=== PATIENT | female | born 1990 | race Two or more races ===

== ENCOUNTER 2017-09-07 07:54 | Inpatient (IN) | payer OTHER ==
[2017-09-07] MEDS ORDERED: Oxytocin 20 units in LR 2,000 ML IV ONE (08:10)
[2017-09-07] MEDS ORDERED: Lidocaine 2% Inj (20ml) ONE (08:10)
[2017-09-07] MEDS ORDERED: Penicillin G 5 Million Unit Vial IVPB ONE ×2 (08:11→08:49)
[2017-09-07 08:33] VITALS: BMI 25.0
--- NOTE | 2017-09-07 08:39 | OBADHP ---
Datetime: 09/07/2017 08:37 Admit Comment, IP Provider: 18 yo [id number] edc 09/24 37.4wks is a pt of dr modi. she presents w/ c/o ctxs since 23:00 with increased intensity andfreq since 4am. +srom upon eval in [facility]. denies decre ased fm or problems w/ preg. gbs unknown. declines epidural pt w/ urge to push pmhx_ pshx: denies shx: denies etoh, illicit drug/tobacco use nkda medic: pnv i: 37.4wks labor p: admit pt advised that cervix is not completely dilated and that she is not ready to push. IP Chief Complaint: Uterine contractions EGA AdmitDate IP: 37.4 IP Admit Plan: Admit to unit Datetime: 09/07/2017 08:31 Pelvic Type - PN: Adequate Extremities - PN: Normal Abdomen - PN: Normal Back - PN: Normal Lungs - PN: Normal Heart - PN: Normal Neurologic - PN: Normal HEENT - PN: Normal General - PN: Normal Presentation-Admit: Vertex FHR - Baseline A Provider: 120 Amniotic Fluid Color, Provider: Clear Membranes, Provider: Ruptured Contraction Comments Provider: q2min NICHD Variability Prov Fetus A: Moderate 6-25bpm NICHD Accel Fetus A IP Provider: [id number] FHR Category Provider Fetus A: Category I NICHD Decel Fetus A IP Provider: None Dilatation, Provider: 9 Effacement, Provider: 90 Station, Provider: -1
[2017-09-07] MEDS ORDERED: Lactated Ringer's 1,000 ML IV SCH (09:00)
[2017-09-07 09:25] LABS: EOS # 0.1 K/uL (0.0-0.7); EOS % 0.5 % (0.0-4.0); NRBC % 0.1 % (0.0-2.0); WHITE BLOOD COUNT 14.3 K/uL (4.8-10.8)
[2017-09-07 09:35] LABS: BASO % 0.2 % (0.0-2.0); HEMOGLOBIN 10.9 g/dL (11.0-16.0); LYMPH # 3.6 K/uL (1.0-4.3); LYMPH % 24.9 % (20.0-40.0); MEAN CORPUSCULAR HEMOGLOBIN 26.2 pg (27.0-31.0); MEAN CORPUSCULAR HGB CONC 31.6 g/dL (33.0-37.0); MEAN PLATELET VOLUME 11.8 fL (7.2-11.7); MONO % 6.7 % (0.0-10.0); NEUT # 9.7 K/uL (1.8-7.0); NEUT % 67.7 % (50.0-75.0); RBC 4.16 Mil/uL (3.80-5.20); RED CELL DISTRIBUTION WIDTH 16.7 % (11.5-14.5)
[2017-09-07 09:53] LABS: BLOOD UREA NITROGEN 7 mg/dL (7-17); CALCIUM 8.4 mg/dl (8.6-10.4); GFR AFRICAN-AMERICAN > 60; GFR NON-AFRICAN AMERICAN > 60
[2017-09-07 11:55] LABS: HEPATITIS B SURFACE AG NEGATIVE (NEGATIVE)
[2017-09-07] MEDS: Multiple Vitamins Tab PO SCH (13:49)
[2017-09-08 07:40] LABS: MEAN CELL VOLUME 81.8 fL (81.0-99.0); MEAN CORPUSCULAR HEMOGLOBIN 26.5 pg (27.0-31.0); MEAN CORPUSCULAR HGB CONC 32.4 g/dL (33.0-37.0); MEAN PLATELET VOLUME 12.3 fL (7.2-11.7); RBC 4.15 Mil/uL (3.80-5.20); RED CELL DISTRIBUTION WIDTH 16.7 % (11.5-14.5); WHITE BLOOD COUNT 13.5 K/uL (4.8-10.8)
[2017-09-08] MEDS: Multiple Vitamins Tab PO SCH (10:48)
--- NOTE | 2017-09-08 18:49 | OBDS ---
DELIVERY PERSONNEL Delivery Doctor: Mike Lomeli MD Heavy Equipment Sales Manager: ShearodríguezCatalina RN MATERNAL INFORMATION Delivery Anesthesia: Local Medications in Delivery: PITOCIN 20UNITS IN NS 1000ML. Estimated Blood Loss (ml): 250 Placenta Cultured: No Maternal Complications: None Provider Comments: Precipitous VD Delivery @ 37.4wks Findings: clear amniotic fluid; viable male, 3475g 8ad50hh; 9_9; 2nd degree perineal laceration Ob:real nelson Placenta delivery _ repair per Dr. Lomeli LABOR SUMMARY EDC: 09/24/2017 00:00 No. Babies in Womb: 1 Attempted: No Labor Anesthesia: None LABOR INFORMATION Reason for Induction: Not Applicable Onset of Labor: 09/06/2017 22:00 Complete Dilatation: 09/07/2017 08:00 Oxytocin: N/A Group B Beta Strep: Negative Antibiotics # of Doses: 1 Antibiotics Time of Last Dose: pen g. 5.0units ivpb. Steroids Given: None Reason Steroids Not Administered: Not Applicable MEMBRANES Membranes Rupture Method: Spontaneous Rupture of Membranes: 09/07/2017 07:50 Length of Rupture (hrs): 0.50 Amniotic Fluid Color: Clear Amniotic Fluid Amount: Moderate Amniotic Fluid Odor: Normal STAGES OF LABOR Stage 1 hrs: 10 Stage 1 min: 0 Stage 2 hrs: 0 Stage 2 min: 20 Stage 3 hrs: 0 Stage 3 min: 47 Total Time in Labor hrs: 11 Total Time in Labor min: 7 VAGINAL DELIVERY Episiotomy: Median Laceration Extension: Second Degree Laceration Type: Perineal Laceration Repair: Yes Initial Vag Sponge Count: 10 Final Vag Sponge Count: 10 Initial Vag Sharps Count: 2 Final Vag Sharps Count: 2 Sponge Count Correct: Yes Sharps Count Correct: Yes CSECTION DELIVERY Primary Indication: N/A Secondary Indication: N/A CSection Urgency: N/A CSection Incidence: N/A Labor: N/A Elective: N/A CSection Incision: N/A BABY A INFORMATION Delivery Date/Time: 09/07/2017 08:20 Method of Delivery: Vaginal Born in Route : No : N/A Forceps: N/A Vacuum Extraction: N/A Shoulder Dystocia : No SHOULDER DYSTOCIA BABY A Delivery Date/Time: 09/07/2017 08:20 PRESENTATION/POSITION BABY A Presentation: Cephalic Cephalic Presentation: Vertex Vertex Position: Right Occipital Anterior Breech Presentation: N/A PLACENTA INFORMATION BABY A Placenta Delivery Time : 09/07/2017 09:07 Placenta Method of Delivery: Spontaneous Placenta Status: Delivered SCORES BABY A Heart Rate 1 min: >100 bpm Resp Effort 1 min: Good Cry Reflex Irritability 1 min: Cough or Sneeze or Pulls Away Muscle Tone 1 min: Active Motion Color 1 min: Body [place], Extremities Blue SCORE 1 MIN: 9 Heart Rate 5 min: >100 bpm Resp Effort 5 min: Good Cry Reflex Irritability 5 min: Cough or Sneeze or Pulls Away Muscle Tone 5 min: Active Motion Color 5 min: Body [place], Extremities Blue SCORE 5 MIN: 9 INFANT INFORMATION BABY A Gestational Age at Delivery: 37.0 Gestational Status: Term Infant Outcome : Liveborn Infant Condition : Stable Infant Sex: Male IDENTIFICATION/MEDS BABY A ID Band Number: [id number] ID Band Location: Left Leg; Left Arm Sensor Applied: Yes Sensor Number: [id number] Sensor Location : Cord Clamp Vitamin K Given : Aquamephyton 1 mg IM Erythromycin Given: Given Both Eyes WEIGHT/LENGTH BABY A Birthweight (gms): 3475 Infant Weight (lb): 7 Infant Weight (oz): 11 Infant Length Inches: 19.75 Length cms: 50.2 CORD INFORMATION BABY A No. Cord Vessels: 3 Nuchal Cord : N/A True Knot: 0 Cord Blood Taken: No Infant Suction: Mouth; Nose ASSESSMENT BABY A Complications: None Physical Findings at Delivery: Within Normal Limits Respirations: Appears Normal [place]/ALS Called : No Infant Care By: ZEKE PEREZ Transferred To: [facility]
--- NOTE | 2017-09-08 18:54 | OBPPN ---
Datetime: 09/08/2017 18:50 PP Pain Prov: Within normal limits PP Breasts Prov: Normal PP Heart Prov: Normal PP Lungs Prov: Normal PP Abdomen/Uterus Prov: Normal PP Lochia Prov: Normal PP Vulva/Perineum Prov: Normal PP CVA Tenderness Prov: Normal PP Extremities Prov: Normal PP C/S Incision Prov: Normal PP Impression Prov: Normal progression PP Progress Note Prov: PPD #1 No C/O VS Stable Abdomen Soft Perineum Intact P: Home in AM if stable
--- NOTE | 2017-09-08 18:54 | OBDCSUM ---
Datetime: 09/08/2017 18:53 Discharged to, Provider: Home Follow up at, Provider: Dr. Armani Drake Instr Activity: Normal activity Disch Instr Diet: Regular Discharge Instructions, Provider: Routine instructions given Discharge Diagnosis, Provider: Delivery Follow up in weeks, Provider: Ariadna Drake Referrals: None Contraception discussed, Prov: Yes Datetime: 09/08/2017 18:52 Discharge Instructions, Provider: Routine instructions given Discharge Diagnosis, Provider: Delivery
--- NOTE | 2017-09-08 18:56 | OBDCSUM ---
Datetime: 09/08/2017 18:54 Discharged to, Provider: Home Follow up at, Provider: Dr. Lomeli Disch Instr Activity: Normal activity Disch Instr Diet: Regular Discharge Instructions, Provider: Routine instructions given Discharge Diagnosis, Provider: Delivery Follow up in weeks, Provider: 4 weeks Disch Referrals: None Contraception discussed, Prov: Yes Disch Activity Restrictions: No sexual activity; Nothing in vagina - Supai, tampons, douche Contraception after Delivery: Not Planning to Use Datetime: 09/08/2017 18:53 Discharged to, Provider: Home Follow up at, Provider: Dr. Lomeli Disch Instr Activity: Normal activity Disch Instr Diet: Regular Discharge Instructions, Provider: Routine instructions given Discharge Diagnosis, Provider: Delivery Follow up in weeks, Provider: 4 weks Disch Referrals: None Contraception discussed, Prov: Yes Datetime: 09/08/2017 18:52 Discharge Instructions, Provider: Routine instructions given Discharge Diagnosis, Provider: Delivery
[2017-09-09 08:00] VITALS: BP 100/71; PULSE 86; RESP 18; O2SAT 100
[2017-09-09] MEDS: Multiple Vitamins Tab PO SCH (09:58)
[2017-09-09] MEDS ORDERED: Influenza Vaccine 60 mcg/0.5 mL SYR (4YR UP) IM ONE (10:00)
[2017-09-09] MEDS ORDERED: Measles, Mumps, and Rubella 0.5 ML VIAL SC ONE (10:00)
[2017-09-09 19:24] VITALS: TEMP 97.1
== END 2017-09-09 15:00 | disposition home or self-care (01) | DRG 775 ==
LOC: C.EROB 07:54 → EDBD 08:00 → C.4D 08:00 → C.4M 11:10
PROVIDERS: ADMIT Obstetrics & Gynecology Gynecology; ATTEND Obstetrics & Gynecology Gynecology
PROC: 10E0XZZ Delivery of Products of Conception, External Approach (ICD-10-PCS; principal; 2017-09-07)
PROC: 0KQM0ZZ Repair Perineum Muscle, Open Approach (ICD-10-PCS; 2017-09-07)
DX: O60.14X0 Preterm labor third trimester with preterm delivery third trimester, not applicable or unspecified (principal); O70.1 Second degree perineal laceration during delivery; Z37.0 Single live birth; Z3A.37 37 weeks gestation of pregnancy